=== PATIENT | male | born 1960 | race Caucasian/White ===

== ENCOUNTER 2021-06-04 13:03 | Emergency (ER) | payer BC, SELFPAY ==
[2021-06-04 13:37] LABS: Bilirubin Small (Negative); Blood, Urine Large (Negative); Clarity Slightly Cloudy (Clear); Glucose, Urine (Dipstick) >=1000 mg/dL (Negative); Ketone, Urine 40 mg/dL (Negative); Leukocyte Small (Negative); Nitrite Negative (Negative); Protein, Urine (Dipstick) 100 mg/dL (Neg-Trace); Specific Gravity, Urine 1.015 (1.005-1.030); Urobilinogen 0.2 mg/dL (Less than 2)
[2021-06-04 13:43] LABS: Bacteria/HPF Rare-Few HPF (None Seen); RBC/HPF Greater than 50 HPF (0-3); Squamous Epithelial 0-3 HPF (0-3); WBC/HPF Greater Than 50 HPF (0-3)
[2021-06-04 13:56] LABS: ALT (SGPT) 15 U/L (8-55); AST (SGOT) 15 U/L (5-34); Albumin 2.9 g/dL (3.5-5.0); Alkaline Phosphatase 131 U/L (40-110); BUN (Urea Nitrogen) 68 mg/dL (8.4-25.7); Bilirubin, Total 0.3 mg/dL (0.2-1.2); Calc. Creatinine Clearance 0 mL/min (70-130); Calcium 8.9 mg/dL (7.8-10.44); Chloride 87 mmol/L (98-107); Globulin 4.3 g/dL (2.4-3.5); Lipase 63 U/L (8-78); Potassium 5.8 mmol/L (3.5-5.1); Protein, Total 7.2 g/dL (6.0-8.3)
[2021-06-04] MEDS ORDERED: Piperacillin/Tazobactam 4.5 GM VIAL ONE (14:02)
[2021-06-04] MEDS ORDERED: Sodium Chloride 0.9% 100 ML ONE (14:02)
[2021-06-04 14:09] LABS: Carbon Dioxide Less than 8 mmol/L (22-29); Glucose 796 mg/dL (70-105); Sodium 119 mmol/L (136-145)
[2021-06-04] MEDS ORDERED: INSULIN REGULAR IN 0.9 % NACL 100 UNIT/100 ML BAG ONE (14:16)
[2021-06-04] MEDS ORDERED: Sodium Chloride 0.9% 2,000 ML ONE (14:26)
[2021-06-04] MEDS ORDERED: Ondansetron PF 4 MG/2 ML Vial ONE (14:33)
[2021-06-04] MEDS ORDERED: Sodium Chloride 0.9% 500 ML ONE (14:47)
[2021-06-04 15:01] LABS: Base Excess-Venous -21.4 mmol/L (-2.0 to 3.0); Bicarbonate (HCO3v) 6.4 mmol/L (22.0-28.0); CO2 Tension (PvCO2) 20.8 mmHg (42.0-51.0); Calcium, Ionized 1.06 mmol/L (1.15-1.33); Chloride 95 mmol/L (98-107); Hemoglobin - Calc 17.4 g/dL (14.0-18.0); Potassium 5.4 mmol/L (3.5-5.1); Sodium 116 mmol/L (138-145); T. Carbon Dioxide 7.1 mmol/L (22.0-28.0); vO2 Saturation-calc 79.9 % (60.0-85.0)
[2021-06-04 16:20] LABS: Glucose POC Confirmation 613 mg/dl (70-105)
[2021-06-04 16:25] LABS: Lactic Acid 2.9 mmol/L (0.5-2.2)
[2021-06-08 12:33] LABS: Red Blood Cell (RBC) Count 5.81 mill/uL (4.70-6.10); White Blood Cell (WBC) Count 54.6 thou/uL (4.8-10.8)
[2021-06-08 12:34] LABS: Band 11 % (5-11); Hemoglobin 16.2 g/dL (14.0-18.0); Lymphocytes 1 % (21-51); MDiff Complete? YES; Mean Corpuscular HGB CONC 29.3 g/dL (32.0-36.0); Mean Corpuscular Hemoglobin 27.8 pg (27.0-31.0); Mean Corpuscular Volume 94.8 fL (78.0-98.0); Mean Platelet Volume 10.9 fL (7.4-10.4); Monocytes 2 % (0-10); Neutrophil 86 % (42-75); Platelet Count 269 thou/uL (130-400); RBC Distribution Width 12.9 % (11.5-14.5)
== END 2021-06-04 16:41 | disposition short-term general hospital (02) ==
LOC: NAV ERS 13:03
DX: A41.9 Sepsis, unspecified organism (principal); E11.10 Type 2 diabetes mellitus with ketoacidosis without coma; N17.9 Acute kidney failure, unspecified; I10 Essential (primary) hypertension; Z87.891 Personal history of nicotine dependence; Z79.84 Long term (current) use of oral hypoglycemic drugs; Z79.899 Other long term (current) drug therapy
CPT/HCPCS: 36415; 36416; 51702; 71045; 74176; 80053; 81003; 81015; 82010; 82330; 82803; 83605; 83690; 85007; 85025; 85027; 85060; 87040; 87077; 87086; 87186; 93005; 94760; 96365; 96366; 96367; 96375; J2405; J2543; J3370; J3490; J7030; J7050

== ENCOUNTER 2021-07-14 16:11 | Emergency (ER) | payer OTHER ==
[2021-07-14 17:00] LABS: #Basophils 0.1 thou/uL (0.0-0.2); #Lymphocytes 1.1 thou/uL (1.20-3.40); #Monocytes 0.7 thou/uL (0.11-0.59); #Neutrophils 13.3 thou/uL (1.40-6.50); %Basophils 0.6 % (0.0-1.0); %Eosinophils 0.3 % (0.0-10.0); %Lymphocytes 7.5 % (21.0-51.0); %Monocytes 4.6 % (0.0-10.0); Hemoglobin 11.2 g/dL (14.0-18.0); Mean Corpuscular Hemoglobin 28.8 pg (27.0-31.0); Mean Corpuscular Volume 96.1 fL (78.0-98.0); Mean Platelet Volume 9.8 fL (7.4-10.4); Platelet Count 255 thou/uL (130-400); RBC Distribution Width 17.2 % (11.5-14.5); Red Blood Cell (RBC) Count 3.87 mill/uL (4.70-6.10); White Blood Cell (WBC) Count 15.3 thou/uL (4.8-10.8)
[2021-07-14 17:14] LABS: ALT (SGPT) 18 U/L (8-55); AST (SGOT) 20 U/L (5-34); Albumin 2.7 g/dL (3.5-5.0); Alkaline Phosphatase 75 U/L (40-110); Anion Gap 12 mmol/L (10-20); BUN (Urea Nitrogen) 34 mg/dL (8.4-25.7); Bilirubin, Total 0.3 mg/dL (0.2-1.2); Calc. Creatinine Clearance 0 mL/min (70-130); Calcium 8.6 mg/dL (7.8-10.44); Carbon Dioxide 29 mmol/L (22-29); Chloride 101 mmol/L (98-107); Globulin 4.1 g/dL (2.4-3.5); Glucose 230 mg/dL (70-105); Potassium 5.3 mmol/L (3.5-5.1); Protein, Total 6.8 g/dL (6.0-8.3); Sodium 137 mmol/L (136-145)
[2021-07-14 17:32] LABS: Bilirubin Negative (Negative); Blood, Urine Moderate (Negative); Clarity Cloudy (Clear); Glucose, Urine (Dipstick) Negative (Negative); Ketone, Urine Negative (Negative); Leukocyte Large (Negative); Nitrite Negative (Negative); Protein, Urine (Dipstick) 100 mg/dL (Neg-Trace); Urobilinogen 0.2 mg/dL (Less than 2); pH, Urine 5.5 (5.0-9.0)
[2021-07-14 17:41] LABS: RBC/HPF 0-3 HPF (0-3)
[2021-07-14 17:42] LABS: Mucous/LPF 2+ LPF (<2+); Yeast-Budding 2+ HPF (None Seen)
[2021-07-14 17:43] LABS: Bacteria/HPF 2+ HPF (None Seen)
[2021-07-14] MEDS ORDERED: Fluconazole 100 MG TAB ONE (19:39)
[2021-07-14] MEDS ORDERED: Sodium Chloride 0.9% 500 ML ONE ×2 (19:39→22:51)
[2021-07-14 20:26] LABS: Lactic Acid 1.9 mmol/L (0.5-2.2)
[2021-07-14 22:10] LABS: SARS-CoV-2 NAA Rapid Test Not Detected (NotDetected)
[2021-07-14] MEDS ORDERED: Furosemide 20 MG/2 ML VIAL ONE (23:13)
== END 2021-07-14 23:36 | disposition short-term general hospital (02) ==
LOC: NAV ERS 16:11
DX: A41.02 Sepsis due to Methicillin resistant Staphylococcus aureus (principal); J90 Pleural effusion, not elsewhere classified; R82.90 Unspecified abnormal findings in urine; Z20.822 Contact with and (suspected) exposure to COVID-19; E11.9 Type 2 diabetes mellitus without complications; I10 Essential (primary) hypertension; F17.200 Nicotine dependence, unspecified, uncomplicated; Z79.84 Long term (current) use of oral hypoglycemic drugs; Z79.899 Other long term (current) drug therapy
CPT/HCPCS: 0240U; 71045; 80053; 81003; 81015; 83605; 83880; 85025; 87040; 93005; 96374; 96375; J1940; J3370; J7030; U0003; U0005